=== PATIENT | male | born 1990 | race African-American/Black ===

== ENCOUNTER 2016-08-18 23:39 | Emergency (ER) | payer MEDICAID ==
[~2016-08-18] VITALS: Ht 180.3 cm; Wt 77.1 kg
[2016-08-18 23:40] VITALS: BP_SYST 137
[2016-08-19 00:55] VITALS: BP_SYST 137
== END 2016-08-19 00:55 ==
LOC: SED 23:39
DX: S00.81XA Abrasion of other part of head, initial encounter (principal); J45.909 Unspecified asthma, uncomplicated; V89.2XXA Person injured in unspecified motor-vehicle accident, traffic, initial encounter; Y93.89 Activity, other specified; Y92.89 Other specified places as the place of occurrence of the external cause; Y99.8 Other external cause status
CPT/HCPCS: 99283

== ENCOUNTER 2021-01-07 16:04 | Emergency (ER) | payer SELFPAY ==
[~2021-01-07] VITALS: Ht 182.9 cm; Wt 90.7 kg
[2021-01-07 16:43] VITALS: BP_SYST 148
--- NOTE | 2021-01-07 17:00 | NUR ---
Patient to TRIAGE to gown for evaluation. Side rails up.
--- NOTE | 2021-01-07 17:10 | NUR ---
ER at bedside examining patient.
[2021-01-07] MEDS ORDERED: IBUP-1971 PO (17:30)
[2021-01-07] MEDS ORDERED: CLIN300C12 PO (17:30)
[2021-01-07 17:35] VITALS: BP_SYST 148
--- NOTE | 2021-01-07 17:35 | NUR ---
Patient given written and verbal discharge instructions and verbalizes understanding. ER MD discussed with patient the results and treatment provided. Patient in stable condition. ID arm band removed. Rx of clindamycin,ibuprofen given. Patient educated on pain management and to follow up with PMD. Pain Scale 3 Opportunity for questions provided and answered. Medication side effect fact sheet provided.
== END 2021-01-07 17:35 | disposition home or self-care (01) ==
LOC: SED 16:04
DX: K04.7 Periapical abscess without sinus (principal); J45.909 Unspecified asthma, uncomplicated; Z79.899 Other long term (current) drug therapy
CPT/HCPCS: 99283